=== PATIENT | male | born 1995 | race Caucasian/White ===

== ENCOUNTER 2025-02-27 17:50 | Inpatient (IN) | payer SELFPAY ==
[~2025-02-27] VITALS: Ht 167.6 cm; Wt 81.2 kg
[2025-02-27 17:54] VITALS: TEMP 99
[2025-02-27] MEDS: LORAZEPAM INJ 2 MG/ML VIAL IV ONE ×2 (18:22→20:45)
[2025-02-27] MEDS: SODIUM CHLORIDE 0.9% 1000ML 1,000 ML IV ONE ×2 (18:23→21:01)
[2025-02-27] MEDS: ONDANSETRON HCL INJ 2MG/ML 2ML 2 MG/ML VIAL IV STA (18:23)
[2025-02-27 18:58] VITALS: PULSE 99; RESP 20
[2025-02-27] MEDS ORDERED: ONDANSETRON HCL INJ 2MG/ML 2ML 2 MG/ML VIAL IV PRN (20:15)
[2025-02-27] MEDS: SODIUM CHLORIDE 0.9% 1000ML 1,000 ML IV SCH (20:45)
[2025-02-27] MEDS: KETOROLAC TROMETHAMINE 30 MG/ML VIAL IV STA (21:01)
[2025-02-27 23:57] VITALS: BP 144/83; PULSE 93; RESP 16; TEMP 98.7; O2SAT 96
[2025-02-28] VITALS (26 sets, daily range): BP systolic 90–147; BP diastolic 67–91; PULSE 72–110; RESP 9–22; TEMP 97.9–98.9; O2SAT 94–100
[2025-02-28] MEDS ORDERED: ACETAMINOPHEN 325 MG TAB PO PRN
[2025-02-28] MEDS ORDERED: HYDRALAZINE HCL 20 MG/ML VIAL IV PRN
[2025-02-28] MEDS: LORAZEPAM INJ 2 MG/ML VIAL IV PRN (00:07)
[2025-02-28] MEDS: CHLORDIAZEPOXIDE HCL 25 MG CAP PO SCH (05:17)
[2025-02-28] MEDS: LORAZEPAM INJ 2 MG/ML VIAL ONE (05:24)
[2025-02-28] MEDS: CHLORDIAZEPOXIDE HCL 25 MG CAP PO PRN ×2 (07:30→15:42)
[2025-02-28] MEDS: LORAZEPAM INJ 2 MG/ML VIAL IV ONE (08:34)
[2025-02-28] MEDS: LACTATED RINGER'S 1,000 ML INJ SCH (08:41)
[2025-02-28] MEDS: THIAMINE HCL INJ 100 MG/ML 2ML VIAL IV ONE (08:41)
[2025-02-28 08:45] LABS: ALBUMIN 3.5 g/dL (3.5-5.0); ALBUMIN/GLOBULIN RATIO 1.3 (0.8-2.0); ANION GAP 13.9 mmol/L (8-16); BILIRUBIN,TOTAL 0.8 mg/dL (0.2-1.2); CALCIUM 8.5 mg/dL (8.4-10.2); CREATININE, SERUM 0.81 mg/dL (0.72-1.25); POTASSIUM 3.9 mmol/L (3.5-5.1); TOTAL PROTEIN 6.2 g/dL (6.5-8.1)
== END 2025-02-28 17:50 | disposition left against medical advice (07) | DRG 894 ==
LOC: FSED 18:02 → ERHOLD 20:24 → ICU 23:41
PROVIDERS: ADMIT Internal Medicine; ATTEND Internal Medicine
PROC: HZ2ZZZZ Detoxification Services for Substance Abuse Treatment (ICD-10-PCS; principal; 2025-02-28)
DX: F10.231 Alcohol dependence with withdrawal delirium (principal)
CPT/HCPCS: 36415; 80053; 82607; 82746; 83735; 85025; 99252; 99284; J1885; J2060; J2405; J3411; J7030